=== PATIENT | female | born 1990 | race Two or more races ===

== ENCOUNTER 2021-09-22 13:22 | Emergency (ER) | payer BC, OTHER ==
[~2021-09-22] VITALS: Ht 160 cm; Wt 68.0 kg
[2021-09-22 14:57] VITALS: BP 144/91
[2021-09-22 15:12] LABS: Urine Bacteria FEW /hpf (None Seen); Urine Blood 1+ /uL (Negative); Urine Specific Gravity 1.006 (1.001-1.035); Urine WBC 19 /hpf (0 - 5)
[2021-09-22] MEDS ORDERED: KETOROLAC TROMETH 60MG/2ML VIAL IM ONE (16:15)
[2021-09-22] MEDS ORDERED: SULF400T11 PO (16:22)
[2021-09-22] MEDS ORDERED: IBUP800T27 PO (16:22)
== END 2021-09-22 16:54 | disposition home or self-care (01) ==
LOC: ER 13:22
DX: Q51.28 Other and unspecified doubling of uterus (principal); N83.8 Other noninflammatory disorders of ovary, fallopian tube and broad ligament; N39.0 Urinary tract infection, site not specified; F17.290 Nicotine dependence, other tobacco product, uncomplicated
CPT/HCPCS: 76830; 76856; 81001; 81025; 96372; 99284; J1885